=== PATIENT | male | born 1975 | race Caucasian/White ===

== ENCOUNTER 2016-12-08 16:37 | Emergency (ER) | payer BC ==
[~2016-12-08] VITALS: Ht 182.9 cm; Wt 86.4 kg
[2016-12-08 16:40] VITALS: TEMP 97.9
[2016-12-08] MEDS ORDERED: PREDNISONE20 MG PO (18:17)
[2016-12-08] MEDS ORDERED: ZITHROMAX 250M250 MG PO (18:17)
[2016-12-08 18:30] VITALS: BP 118/70; PULSE 76
== END 2016-12-08 18:31 | disposition home or self-care (01) ==
LOC: COL.ER 16:37
DX: J20.9 Acute bronchitis, unspecified (principal)
CPT/HCPCS: J7512

== ENCOUNTER → 2019-07-06 | Outpatient (CLI) | payer BC ==
[~2019-07-06] MED LIST: PREDNISONE20 MG PO; ZITHROMAX 250M250 MG PO
== END ==
LOC: COL.LAB 14:11
DX: R19.7 Diarrhea, unspecified (principal)

== ENCOUNTER 2024-04-28 11:23 | Emergency (ER) | payer OTHER ==
[~2024-04-28] VITALS: Ht 182.9 cm; Wt 90.9 kg
[2024-04-28 11:27] VITALS: TEMP 98
[2024-04-28] MEDS ORDERED: Famotidine 20 MG TAB PO ONE (11:45)
[2024-04-28 12:16] LABS: BASO # 0.1 K/mm3 (0.0-0.2); BASO % 0.5 % (0.0-2.0); EOS # 0.3 K/mm3 (0.0-0.7); EOS % 3.3 % (0.0-4.0); GRAN # 6.4 K/mm3 (1.4-6.5); GRAN % 69.2 % (42.2-75.2); HEMATOCRIT 44.7 % (42.0-52.0); HEMOGLOBIN 15.9 g/dl (13.5-18.0); LYMPH # 1.8 K/mm3 (1.2-3.4); LYMPH % 18.9 % (20.0-51.0); MEAN CELL VOLUME 89 fl (80.0-100.0); MEAN CORPUSCULAR HEMOGLOBIN 32 pg (27-31); MEAN CORPUSCULAR HGB CONC 36 g/dl (33.0-37.0); MEAN PLATELET VOLUME 8.6 fl (7.4-10.4); MONO # 0.7 K/mm3 (0.1-0.6); MONO % 7.5 % (1.7-9.3); PLATELET COUNT 256 K/mm3 (130-400); RED BLOOD COUNT 5.03 M/mm3 (4.20-5.60); REDCELL DISTRIBUTION WIDTH-CV 12.9 % (11.5-14.5)
[2024-04-28 12:40] LABS: ALANINE AMINOTRANSFERASE 23 U/L (0-55); ALKALINE PHOSPHATASE 38 U/L (40-150); ANION GAP 13 mmol/L (7-16); AST,SGOT 17 U/L (5-34); BILIRUBIN,TOTAL 0.6 mg/dL (0.2-1.2); BLOOD UREA NITROGEN 37 mg/dL (9-21); CALCIUM 8.6 mg/dL (8.4-10.2); CHLORIDE 107 mEq/L (98-107); CREATININE, serum 0.93 mg/dL (0.72-1.25); GLUCOSE 92 mg/dL (70-99); SODIUM 141 mEq/L (136-145); TOTAL PROTEIN 6.9 g/dl (6.2-8.1)
[2024-04-28 12:55] LABS: TROPONIN-I < 0.010 ng/mL (0.00-0.033)
[2024-04-28 13:48] VITALS: BP 108/78; PULSE 56
== END 2024-04-28 13:53 | disposition home or self-care (01) ==
LOC: COL.ER 11:23
PROVIDERS: Emergency Medicine
DX: R07.89 Other chest pain (principal); K21.9 Gastro-esophageal reflux disease without esophagitis